=== PATIENT | female | born 1960 | race Caucasian/White ===

== ENCOUNTER 2017-09-02 07:03 | Day surgery (SDC) | payer OTHER ==
[~2017-09-02 07:03] MED LIST: Lactated Ringers 1,000 ML IV SCH; Lidocaine 1%/Sod Bicarbonate in NS 8.4% 1 ML Syringe IDERM PRN; Midazolam 1 MG/ML 2 ML SDV ONE; Propofol 200 MG/20 ML SDV ONE; Sodium Chloride 0.9% 10 ML Syringe FLUSH PRN; fentaNYL 100 MCG/2 ML SDV ONE
[2017-09-02] MEDS ORDERED: Lidocaine 1% 50 ML MDV ONE (07:21)
--- NOTE | 2017-09-02 07:28 | PCM.PREANE ---
Preanesthetic Assessment - Anesthesia/Transfusion/Family Hx Anesthesia History: Prior Anesthesia Without Reaction Type of Anesthesia Reaction: Excessive Nausea/Vomiting (with certain surgeries) Family History of Anesthesia Reaction: No Transfusion History: No Prior Transfusion(s) - Review of Systems General: Other (fatty liver, ca basal cell on face, BMI 41) Pulmonary: Shortness of Breath (uses inhaler, states SOB better since start of inhaler, current smoker) Cardiovascular: Chest Pain (last episode was november 2016, started imdur at that time), Palpitations, Dyspnea on Exertion, Other (HTN, EKG SR with min st depression, ECHO 2017 EF 70%, palpitations, holter monitor in 2017 was negative , cleared per cardiology) Gastrointestinal: Constipation, Other (positive for heartburn and reflux, states when she eats too much, tums used on occasion) Neurological: Numbness (in hands on occasion) Other: Reports: Liver Problems (fatty liver), Sinus Problem - Physical Assessment NPO Status Date: 09/02/17 NPO Status Time: 00:15 Pulse: 72 O2 Sat by Pulse Oximetry: 93 Respiratory Rate: 16 Blood Pressure: 164/91 Weight: 104.326 kg ASA Class: 3 Mental Status: Alert & Oriented x3 Airway Class: Mallampati = 2 Dentition: Reports: Normal Dentition Thyro-Mental Finger Breadths: 3 Mouth Opening Finger Breadths: 3 ROM/Head Extension: Full Lungs: Clear to Auscultation, Normal Respiratory Effort Cardiovascular: Regular Rate, Regular Rhythm - Allergies Allergies/Adverse Reactions: Allergies Allergy/AdvReac Type Severity Reaction Status Date / Time cucumber Allergy "Tongue Verified 08/30/17 14:30 Numbness" morphine Allergy Cannot Verified 11/15/16 06:55 Remember squash Allergy "Tongue Verified 08/30/17 14:30 Numbness" Decongestants Allergy Cannot Uncoded 08/30/17 14:30 Remember melons Allergy "Tongue Uncoded 08/30/17 14:30 Numbness" mold Allergy "Tongue Uncoded 08/30/17 14:30 Numbness" Smuts Allergy "Tongue Uncoded 08/30/17 14:30 Numbness" trees Allergy Itching Uncoded 08/30/17 14:30 - Blood Blood Available: No Product(s) Available: None - Anesthesia Plan Pre-Op Medication Ordered: None Beta Ayde: Metoprolol Med Last Dose Date: 09/02/17 Med Last Dose Time: 06:30 - Acknowledgements Anesthesia Type Planned: General Anesthesia Pt an Appropriate Candidate for the Planned Anesthesia: Yes Alternatives and Risks of Anesthesia Discussed w Pt/Guardian: Yes Pt/Guardian Understands and Agrees with Anesthesia Plan: Yes PreAnesthesia Questionnaire HEENT History: Reports: Impaired Vision, Sinusitis, Other (See Below) Other HEENT History: Patient wears eyeglasses. Cardiovascular History: Reports: Angina, High Cholesterol, Hypertension, Other ( See Below) Other Cardiovascular History: Palpations, Sinus Disorder Respiratory History: Reports: SOB, Other (See Below) Other Respiratory History: Chronic Cough Gastrointestinal History: Reports: Chronic Constipation, Colon Polyp, Other ( See Below) Other Gastrointestinal History: Polyposis, Ulcers Genitourinary History: [employer] History: Reports: Endometriosis Other OB/BYN History: Uterine Polup, Endometrial Hyperplasia, Laparoscopy x2, D& C Musculoskeletal History: Reports: Other (See Below) Other Musculoskeletal History: Back Sprain, Bilateral CTS Neurological History: Reports: Headaches, Chronic, Other (See Below) Other Neuro History: Fainting (one episode) Oncologic (Cancer) History: Reports: Basal Cell Carcinoma Dermatologic History: Reports: Other (See Below) Other Dermatologic History: Skin Neoplasm, 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 - Past Surgical History HEENT Surgical History: Reports: Other (See Below) Other HEENT Surgeries/Procedures: [place] Teeth Removal GI Surgical History: Reports: Appendectomy, Colonoscopy, EGD Female Surgical History: Reports: Breast Biopsy Oncologic Surgical History: Reports: Biopsy of Breast Dermatological Surgical History: Reports: Skin Biopsy - HOME MEDS Home Medications: Home Meds Acetaminophen [Tylenol Extra Strength] 1,000 mg PO TID PRN 08/30/17 [History] Albuterol [Ventolin HFA] 2 puff INH Q4H PRN 08/30/17 [History] Aspirin [Halfprin] 81 mg PO DAILY 08/30/17 [History] Beta-Carotene [Beta Carotene] 25,000 unit .ROUTE ASDIRECTED 08/30/17 [History] Chlorpheniramine Maleate 4 mg .ROUTE TID PRN 08/30/17 [History] Cholecalciferol (Vitamin D3) [Vitamin D3] 4,000 unit PO DAILY 08/30/17 [History] Cyclobenzaprine [Flexeril] 10 mg PO TID PRN 08/30/17 [History] Diltiazem [Cardizem] 180 mg PO DAILY 08/30/17 [History] Fish Oil/[place]-3 Fatty Acids [Fish Oil] 1,000 mg PO DAILY 08/30/17 [History] Furosemide [Lasix] 20 mg PO DAILY PRN 08/30/17 [History] Ibuprofen 600 mg PO Q6H PRN 08/30/17 [History] Isosorbide Mononitrate [Imdur] 30 mg PO DAILY 08/30/17 [History] Joint Flex PO DAILY 08/30/17 [History] Lutein 40 mg PO DAILY 08/30/17 [History] Metoprolol Succinate 25 mg PO DAILY 08/30/17 [History] Nitroglycerin [Nitrostat] 0.4 mg SL ASDIRECTED PRN 08/30/17 [History] Rosuvastatin [Crestor] 10 mg PO DAILY 08/30/17 [History] Ubidecarenone [Co Q-10] 200 mg PO DAILY 08/30/17 [History] guaiFENesin/Dextromethorphan [Mucinex DM ER 1,200-60 MG] 1 tab PO BID PRN [History] - CURRENT (IN HOUSE) MEDS Current Meds: Current Medications Lactated Ringer's (Ringers, Lactated) 1,000 mls @ 125 mls/hr IV ASDIRECTED MAYA Lidocaine/Sodium Bicarbonate (Buffered Lidocaine 1% In Ns 8.4%) 0.25 ml IDERM ONETIME PRN PRN Reason: Prior to IV Start Sodium Chloride (Saline Flush) 10 ml FLUSH ASDIRECTED PRN PRN Reason: Keep Vein Open Discontinued Medications Fentanyl (Sublimaze) Confirm Administered Dose 100 mcg .ROUTE .STK-MED ONE Stop: 09/02/17 07:03 Midazolam HCl (Versed 1 Mg/Ml) Confirm Administered Dose 2 mg .ROUTE .STK-MED ONE Stop: 09/02/17 07:03 Propofol (Diprivan 20 Ml) Confirm Administered Dose 400 mg .ROUTE .STK-MED ONE Stop: 09/02/17 07:03
--- NOTE | 2017-09-02 07:41 | PCM.OPNOTE ---
- General Post-Op/Procedure Note Date of Surgery/Procedure: 09/02/17 Operative Procedure(s): Hysteroscopy, polypectomy, D&C Findings: Intra-uterine findings of polyp arising from posterior uterine wall. Broad based. Otherwise atrophic endometrial lining Pre Op Diagnosis: Hx of simple hyperplasia without atypia arising within a polyp Post-Op Diagnosis: Same Anesthesia Technique: MAC Primary Surgeon: Anum Gaviria Anesthesia Provider: Chanda Villavicencio Pathology: Endometrial polyp and curetting sent to pathology for further evaluation Output, Urine Amount: 20 EBL in mLs: 10 Complications: None Condition: Good Free Text/Narrative:: The risks, benefits, indications, potential complications, and alternatives were explained to the patient and informed consent obtained. Patient was brought to the OR where anesthesia was induced without difficulty. She was placed in the dorsal lithotomy position and prepped and draped in the typical fashion. Speculum placed in the vagina and a paracervical block was performed using 12 cc of 1% lidocaine without epinephrine. Tenaculum placed on the anterior lip of the cervix. The cervix was then sequentially dilated to a # 5 dilator to accommodate a 5-mm hysteroscope. A -mm hysteroscope was then introduced under direct visualization and the uterus was distended. Findings as above. The hysteroscope was then withdrawn and a Jb stones forceps was introduced and after a few attempts was able to successfully remove endometrial polyp. This was confirmed with repeat hysteroscopy. Next a sharp curettage was performed. Specimens sent to pathology. Tenaculum removed and sites appeared hemostatic. Next Dr. Gonzalez performed his portion of case. See his operative note for full details. Fluid Deficit: 100 cc
[2017-09-02] MEDS ORDERED: Ondansetron 4 MG/2 ML SDV ONE (08:43)
--- NOTE | 2017-09-02 09:28 | PCM.OPNOTE ---
- General Post-Op/Procedure Note Date of Surgery/Procedure: 09/02/17 Operative Procedure(s): colonosocopy cecum with bx Pre Op Diagnosis: hx or colonic polyps Post-Op Diagnosis: Same Anesthesia Technique: MAC Primary Surgeon: Jay Gonzalez EBL in mLs: 0 Complications: None Condition: Good
--- NOTE | 2017-09-02 09:32 | PCM.POSTAN ---
POST ANESTHESIA ASSESSMENT - MENTAL STATUS Mental Status: Alert, Oriented - VITAL SIGNS Pulse Rate: 63 SaO2: 100 Resp Rate: 16 Blood Pressure: 173/95 Temperature: 36.5 C - RESPIRATORY Respiratory Status: Respiratory Rate WNL, Airway Patent, O2 Saturation Stable, Supplemental Oxygen - CARDIOVASCULAR CV Status: Pulse Rate WNL, Blood Pressure Stable - GASTROINTESTINAL GI Status: No Symptoms - PAIN Pain Score: 0 - POST OP HYDRATION Hydration Status: Adequate & Stable
--- NOTE | 2017-09-02 10:17 | PCM48HPAN ---
Post Anesthesia Note - EVALUATION WITHIN 48HRS OF ANESTHETIC Vital Signs in Normal Range: Yes Patient Participated in Evaluation: Yes Respiratory Function Stable: Yes Airway Patent: Yes Cardiovascular Function Stable: Yes Hydration Status Stable: Yes Pain Control Satisfactory: Yes Nausea and Vomiting Control Satisfactory: Yes Mental Status Recovered: Yes Pulse Rate: 63 Resp Rate: 17 Temperature: 36.5 C Blood Pressure: 173/95
--- NOTE | 2017-09-03 08:30 | OR ---
DATE OF OPERATION: 09/02/2017 SURGEON: Jay Gonzalez MD PREOPERATIVE DIAGNOSIS: History of multiple serrated colonic polyps. POSTOPERATIVE DIAGNOSIS: History of multiple serrated colonic polyps. OPERATION PERFORMED: Colonoscopy of cecum. FINDINGS: Occasional diminutive polyp in the rectum and at 20 cm biopsies of these were taken and they were all quite diminutive. I did not see any flat serrated polyps in the cecum, ascending, and transverse colon. ANESTHESIA: Procedure done under IV sedation. DESCRIPTION OF PROCEDURE: The patient having taken to the operating room and undergone hysterectomy. IV sedation was continued for colonoscopy after having been connected to monitoring equipment. She was placed in left lateral position. Perianal area was inspected and was normal. Rectal exam showed good sphincter tone. A video Olympus colonoscope was then introduced into the rectum and threaded up without problem to the cecum, where the appendicular orifice was seen. Prep was excellent. [place] cleansing score grade A and the scope was slowly withdrawn showing the cecum, ascending colon, transverse colon, descending colon, sigmoid colon, and rectum, the above findings were noted. Biopsy was taken of a number of diminutive polyps at about 20 cm and 2 in the rectum, sent to Pathology for analysis. The patient tolerated the procedure, sent to recovery room in stable condition, will be followed up in the clinic. ESTIMATED BLOOD LOSS: MMODAL /[id number]
== END 2017-09-02 11:09 | disposition home or self-care (01) ==
LOC: JD.SDS 07:03
PROVIDERS: ATTEND Obstetrics & Gynecology
DX: Z12.11 Encounter for screening for malignant neoplasm of colon (principal); N84.0 Polyp of corpus uteri; K62.1 Rectal polyp; K21.9 Gastro-esophageal reflux disease without esophagitis; I10 Essential (primary) hypertension; E78.2 Mixed hyperlipidemia; Z90.49 Acquired absence of other specified parts of digestive tract; Z79.82 Long term (current) use of aspirin; Z86.010 Personal history of colon polyps; Z79.899 Other long term (current) drug therapy; Z91.018 Allergy to other foods; F17.210 Nicotine dependence, cigarettes, uncomplicated
CPT/HCPCS: 45380; 58558; J2250; J2405; J3010; J7120; 00811; J2704

== ENCOUNTER 2023-03-13 09:03 | Day surgery (SDC) | payer OTHER ==
[2023-03-13] MEDS ORDERED: Propofol 200 MG/20 ML SDV ONE (09:56)
[2023-03-13] MEDS ORDERED: fentaNYL 100 MCG/2 ML SDV ONE (09:57)
[2023-03-13] MEDS ORDERED: Lactated Ringers 1,000 ML IV SCH (10:15)
[2023-03-13] MEDS ORDERED: Sodium Chloride 0.9% 10 ML Syringe FLUSH PRN (10:15)
[2023-03-13] MEDS ORDERED: Sodium Chloride 0.9% 10 ML Syringe FLUSH SCH (21:00)
== END 2023-03-13 12:35 | disposition home or self-care (01) ==
LOC: JD.SDS 09:03
PROVIDERS: ATTEND Surgery
DX: Z12.11 Encounter for screening for malignant neoplasm of colon (principal); K63.5 Polyp of colon; K63.89 Other specified diseases of intestine; K64.8 Other hemorrhoids; E78.2 Mixed hyperlipidemia; E11.9 Type 2 diabetes mellitus without complications; F17.210 Nicotine dependence, cigarettes, uncomplicated; Z88.5 Allergy status to narcotic agent; Z91.018 Allergy to other foods; Z79.899 Other long term (current) drug therapy; Z79.82 Long term (current) use of aspirin; Z79.84 Long term (current) use of oral hypoglycemic drugs
CPT/HCPCS: 45380; J2704; J3010; J7120; 00811

== ENCOUNTER 2024-03-18 08:56 | Day surgery (SDC) | payer MEDICARE, OTHER ==
[~2024-03-18 08:56] MED LIST changes: -Lactated Ringers 1,000 ML IV SCH; -Lidocaine 1%/Sod Bicarbonate in NS 8.4% 1 ML Syringe IDERM PRN; -Midazolam 1 MG/ML 2 ML SDV ONE; -Propofol 200 MG/20 ML SDV ONE; +Sodium Chloride 0.9% 10 ML Syringe FLUSH SCH; -fentaNYL 100 MCG/2 ML SDV ONE
[2024-03-18] MEDS: Lactated Ringers 1,000 ML IV SCH (09:20)
[2024-03-18] MEDS ORDERED: Lidocaine 1% PF 2 ML SDV ONE ×2 (09:33)
[2024-03-18] MEDS ORDERED: Midazolam 1 MG/ML 2 ML SDV ONE (09:33)
[2024-03-18] MEDS ORDERED: Propofol 200 MG/20 ML SDV ONE ×4 (09:33→10:05)
[2024-03-18] MEDS ORDERED: Lidocaine 1% 4 ML ONE (09:33)
== END 2024-03-18 11:56 | disposition home or self-care (01) ==
LOC: JD.SDS 08:56
PROVIDERS: ATTEND Surgery
DX: Z12.11 Encounter for screening for malignant neoplasm of colon (principal); D12.4 Benign neoplasm of descending colon; D12.5 Benign neoplasm of sigmoid colon; K62.1 Rectal polyp; K63.5 Polyp of colon; K51.90 Ulcerative colitis, unspecified, without complications; K64.8 Other hemorrhoids; I10 Essential (primary) hypertension; E78.2 Mixed hyperlipidemia; E11.9 Type 2 diabetes mellitus without complications; E66.9 Obesity, unspecified; F17.210 Nicotine dependence, cigarettes, uncomplicated; Z79.84 Long term (current) use of oral hypoglycemic drugs; Z79.899 Other long term (current) drug therapy; Z88.5 Allergy status to narcotic agent; Z91.018 Allergy to other foods; Z68.33 Body mass index [BMI] 33.0-33.9, adult; Z86.010 Personal history of colon polyps
CPT/HCPCS: 45380; 88305; J2250; J2704; J7120; 00811; J3490

== ENCOUNTER 2025-03-18 07:02 | Day surgery (SDC) | payer MEDICARE, OTHER ==
[~2025-03-18 07:02] MED LIST changes: +Lidocaine 1% 4 ML ONE; +Propofol 200 MG/20 ML SDV ONE
[2025-03-18] MEDS: Lactated Ringers 1,000 ML IV SCH (07:20)
== END 2025-03-18 09:35 | disposition home or self-care (01) ==
LOC: JD.SDS 07:02
PROVIDERS: ATTEND Surgery
DX: Z12.11 Encounter for screening for malignant neoplasm of colon (principal); K63.5 Polyp of colon; I10 Essential (primary) hypertension; E11.9 Type 2 diabetes mellitus without complications; E78.5 Hyperlipidemia, unspecified; J44.9 Chronic obstructive pulmonary disease, unspecified; F17.200 Nicotine dependence, unspecified, uncomplicated; Z86.0101 Personal history of adenomatous and serrated colon polyps; Z88.5 Allergy status to narcotic agent; Z88.8 Allergy status to other drugs, medicaments and biological substances; Z79.899 Other long term (current) drug therapy
CPT/HCPCS: 45380; 88305; J2003; J2704; J7120; 00811